=== PATIENT | male | born 1970 | race Two or more races ===

== ENCOUNTER 2023-11-04 09:59 | Emergency (ER) | payer OTHER, SELFPAY ==
[~2023-11-04] VITALS: Ht 185.4 cm; Wt 102.4 kg
[~2023-11-04 09:59] MED LIST: EMLA2.5C TD; GABA-284 PO; GABA600T4 PO; IBUP80TA PO; PRAZ1CAP PO; PRIL20CA9 PO; TRAM50TA2 PO; TRAZ-257 PO; ZOLO100T PO; focus pain cream TOP
[2023-11-04] MEDS ORDERED: CIAL10TA PO (10:10)
[2023-11-04] MEDS ORDERED: LOMO2.5T PO (10:10)
[2023-11-04] MEDS ORDERED: PANT40TA29 PO (10:10)
[2023-11-04] MEDS ORDERED: ROSU10TA61 PO (10:10)
[2023-11-04] MEDS ORDERED: COLE1TAB PO (10:10)
[2023-11-04] MEDS ORDERED: LINZ145C PO (10:10)
[2023-11-04] MEDS ORDERED: CIME300T91 PO (10:10)
[2023-11-04] MEDS ORDERED: [UNRECOGNIZED DRUG - OTHER] PO (10:10)
[2023-11-04 11:24] LABS: BASO # 0.1 10^3/uL (0.0-0.2); BASO % 0.8 % (0.0-1.0); EOS # 0.1 10^3/uL (0.0-0.5); EOS % 0.5 % (0.0-3.0); HEMATOCRIT 51.8 % (42.0-52.0); HEMOGLOBIN 17.4 g/dl (13.5-17.5); LYMPH # 1.4 10^3/uL (1.5-5.0); LYMPH % 14.8 % (24.0-44.0); MEAN CORPUSCULAR HEMOGLOBIN 29.5 pg (27.0-33.0); MEAN CORPUSCULAR HGB CONC 33.6 g/dl (32.0-36.5); MEAN CORPUSCULAR VOLUME 87.9 fl (80.0-96.0); MONO # 0.8 10^3/uL (0.0-0.8); MONO % 8.4 % (2.0-8.0); NEUTROPHILS # 7.1 10^3/uL (1.5-8.5); NEUTROPHILS % 75.2 % (36.0-66.0); PLATELET COUNT, AUTOMATED 195 10^3/uL (150-450); RED BLOOD COUNT 5.89 10^6/uL (4.30-6.10); WHITE BLOOD COUNT 9.5 10^3/uL (4.0-10.0)
[2023-11-04 11:54] LABS: LIPASE 41 U/L (12-53)
[2023-11-04 11:55] LABS: ALBUMIN 4.5 G/DL (3.2-5.2); ALKALINE PHOSPHATASE 72 U/L (46-116); ALT/SGPT 21 U/L (7.0-40); AST/SGOT 23 U/L (<34); BILIRUBIN,DIRECT 0.3 MG/DL (<0.4); BILIRUBIN,TOTAL 0.8 MG/DL (0.3-1.2); BLOOD UREA NITROGEN 18 MG/DL (9-23); CALCIUM LEVEL 9.6 MG/DL (8.5-10.1); CARBON DIOXIDE LEVEL 26 MMOL/L (20-31); CHLORIDE LEVEL 108 MMOL/L (98-107); CREATININE FOR GFR 1.22 MG/DL (0.70-1.30); GLOMERULAR FILTRATION RATE > 60.0 (>56); GLUCOSE, FASTING 98 MG/DL (60-100); POTASSIUM SERUM 3.9 MMOL/L (3.5-5.1); SODIUM LEVEL 143 MMOL/L (136-145); TOTAL PROTEIN 8.2 G/DL (5.7-8.2)
[2023-11-04 11:57] LABS: ERYTHROCYTE SEDIMENTATION RATE 5 mm/hr (0-20)
[2023-11-04] MEDS ORDERED: ISOVUE-370 76% 100ML VIAL As Ordered ONE (12:03)
[2023-11-04] MEDS ORDERED: DIFI200T PO (13:30)
[2023-11-04 13:46] VITALS: BP 150/86; TEMP 99.1; O2SAT 97
== END 2023-11-04 13:48 | disposition home or self-care (01) ==
LOC: M ED 09:59
DX: A04.72 Enterocolitis due to Clostridium difficile, not specified as recurrent (principal); R91.1 Solitary pulmonary nodule; K57.30 Diverticulosis of large intestine without perforation or abscess without bleeding; M51.27 Other intervertebral disc displacement, lumbosacral region; K21.9 Gastro-esophageal reflux disease without esophagitis; E78.5 Hyperlipidemia, unspecified; Z79.811 Long term (current) use of aromatase inhibitors; Z79.899 Other long term (current) drug therapy
CPT/HCPCS: 36415; 74177; 80048; 80076; 83690; 85025; 85652; 86140; 87507; 99284; Q9967